=== PATIENT | female | born 1980 | race Caucasian/White ===

== ENCOUNTER 2022-06-28 06:10 | Inpatient (IN) ==
[2022-06-28] MEDS ORDERED: NS 100 ML IV 100 ML ONE (06:36)
[2022-06-28] MEDS ORDERED: D5 1/2 NS 1,000 ML 1,000 ML IV ONE (06:37)
[2022-06-28] MEDS ORDERED: ANCEF VIAL 1 GRAM ONE (06:37)
[2022-06-28] MEDS ORDERED: REGLAN INJ 10 MG VIAL ONE (06:45)
[2022-06-28] MEDS ORDERED: OFIRMEV IV 1000 MG VIAL 1,000 MG/100 ML VIAL IV ONE (06:45)
[2022-06-28] MEDS ORDERED: ZEMURON 100 MG VIAL ONE (06:45)
[2022-06-28] MEDS ORDERED: ZOFRAN INJ 4 MG VIAL ONE (06:45)
[2022-06-28] MEDS ORDERED: BRIDION ONE (06:45)
[2022-06-28] MEDS ORDERED: DIPRIVAN VIAL 20 ML ONE (06:45)
[2022-06-28] MEDS ORDERED: XYLOCAINE 2 % (PLAIN) ONE (06:45)
[2022-06-28] MEDS ORDERED: PEPCID 20 MG VIAL ONE (06:45)
[2022-06-28] MEDS ORDERED: VERSED ONE (06:45)
[2022-06-28] MEDS ORDERED: FENTANYL VIAL INJ 250 mcg ONE (06:46)
[2022-06-28] MEDS: D5 1/2 NS 1,000 ML 1,000 ML IV SCH ×5 (06:50→23:50)
[2022-06-28] MEDS ORDERED: LR 1,000 ML IV 1,000 ML IV ONE (06:58)
[2022-06-28] MEDS ORDERED: ANCEF VIAL 1 GRAM IVP ONE (07:05)
[2022-06-28] MEDS ORDERED: BETADINE SOLN ONE (07:12)
[2022-06-28] MEDS ORDERED: SUPRANE ONE (07:21)
[2022-06-28 07:22] VITALS: BMI 35.4
[2022-06-28] MEDS ORDERED: EPHEDRINE SULFATE INJ ONE (08:09)
[2022-06-28] MEDS ORDERED: TORADOL 30 MG VIAL ONE (08:35)
[2022-06-28] MEDS ORDERED: NS 1,000 ML IV 1,000 ML ONE (08:42)
[2022-06-28] MEDS ORDERED: ProvayBLUE 0.5% ONE (08:59)
[2022-06-28] MEDS ORDERED: ROBINUL ONE (09:12)
[2022-06-28] MEDS ORDERED: DILAUDID INJ ONE (09:34)
[2022-06-28] MEDS: DILAUDID INJ IVP PRN ×3 (09:56→10:10)
[2022-06-28] MEDS ORDERED: BARHEMSYS INJ IVP PRN (10:01)
[2022-06-28] MEDS ORDERED: PHENERGAN INJ 25 MG IM PRN (10:01)
[2022-06-28] MEDS ORDERED: BENADRYL INJ 50 MG VIAL IVP PRN ×2 (10:01→10:23)
[2022-06-28] MEDS ORDERED: REGLAN INJ 10 MG VIAL IVP PRN (10:01)
[2022-06-28] MEDS ORDERED: ZOFRAN INJ 4 MG VIAL IVP PRN (10:01)
[2022-06-28] MEDS ORDERED: MORPHINE SULFATE PCA 30 MG IVP PRN (10:23)
[2022-06-28] MEDS ORDERED: TORADOL 30 MG VIAL IVP PRN (10:23)
[2022-06-29] MEDS: D5 1/2 NS 1,000 ML 1,000 ML IV SCH ×5 (02:42→19:06)
[2022-06-29 05:51] LABS: BASOPHILS % (AUTO) 0.3 % (0.2-1.0); EOSINOPHILS # (AUTO) 0.1 x10^3/uL (0.0-0.2); EOSINOPHILS % (AUTO) 0.9 % (0.9-2.9); HEMATOCRIT 29.5 % (36.0-47.0); HEMOGLOBIN 9.9 g/dL (12.0-16.0); LYMPHOCYTES # (AUTO) 1.1 X10^3/uL (1.3-2.9); LYMPHOCYTES % (AUTO) 10.1 % (21.0-51.0); MEAN CORPUSCULAR HEMOGLOBIN 27.5 pg (27.0-34.0); MEAN CORPUSCULAR HGB CONC 33.7 g/dL (33.0-35.0); MEAN CORPUSCULAR VOLUME 81.6 fL (80.0-100.0); MEAN PLATELET VOLUME 8.2 fL (7.4-11.0); MONOCYTES # (AUTO) 0.5 x10^3/uL (0.3-0.8); MONOCYTES % (AUTO) 4.6 % (0.0-13.0); NEUTROPHILS % (AUTO) 84.1 % (42.0-75.0); RED BLOOD COUNT 3.62 X10^6/uL (3.5-5.4); RED CELL DISTRIBUTION WIDTH 15.6 % (11.6-16.5); WHITE BLOOD COUNT 10.7 X10^3/uL (3.6-10.0)
[2022-06-29 06:04] LABS: BLOOD UREA NITROGEN 4 mg/dL (7-18); CALCIUM 7.9 mg/dL (8.5-10.1); CARBON DIOXIDE 29.1 mmol/L (21-32); CHLORIDE 105 mmol/L (98-107); COR NA(FOR HYPERGLY) 139 mmol/L (136-145); CREATININE 0.55 mg/dL (0.55-1.02); SODIUM 139 mmol/L (136-145); eGFR NON BLACK RACES > 60 (>60)
[2022-06-29] MEDS ORDERED: MOTRIN TAB 800 MG PO PRN (07:22)
[2022-06-29] MEDS: COLACE CAP 100 MG PO SCH ×2 (08:23→20:03)
[2022-06-29] MEDS: ESTRACE PO SCH (08:23)
[2022-06-29] MEDS: ZESTRIL TAB 5 MG PO SCH (08:23)
[2022-06-29] MEDS: PERCOCET TAB 5/325 MG PO PRN ×2 (10:21→17:45)
[2022-06-29] MEDS: BACTROBAN TOPICAL OINT TOP SCH ×2 (13:52→21:10)
[2022-06-29] MEDS: ZOFRAN INJ 4 MG VIAL IVP PRN ×2 (17:45→22:54)
[2022-06-30] MEDS: D5 1/2 NS 1,000 ML 1,000 ML IV SCH ×2 (01:22→10:23)
[2022-06-30] MEDS: BACTROBAN TOPICAL OINT TOP SCH (05:20)
[2022-06-30] MEDS: ZESTRIL TAB 5 MG PO SCH (09:15)
[2022-06-30] MEDS: COLACE CAP 100 MG PO SCH (09:15)
[2022-06-30] MEDS: ESTRACE PO SCH (09:15)
[2022-06-30 10:21] VITALS: BP 142/71
== END 2022-06-30 10:00 | disposition home or self-care (01) | DRG 743 ==
LOC: MED/SURG 06:10
PROVIDERS: ADMIT Specialist; ATTEND Specialist
DX: N83.292 Other ovarian cyst, left side; R10.2 Pelvic and perineal pain; N92.5 Other specified irregular menstruation; N83.291 Other ovarian cyst, right side